=== PATIENT | female | born 1950 | race Caucasian/White ===

== ENCOUNTER → 2021-07-05 10:03 | Outpatient (BNVA) | payer MEDICARE, MEDICAID, SELFPAY | PROVIDERS: Visit Provider Nurse Practitioner Family | DX: G40.909 Epilepsy, unspecified, not intractable, without status epilepticus (principal); G47.62 Sleep related leg cramps; H54.8 Legal blindness, as defined in USA; F84.9 Pervasive developmental disorder, unspecified; R32 Unspecified urinary incontinence | CPT/HCPCS: 99212 ==

== ENCOUNTER → 2022-01-06 09:33 | Outpatient (BNVA) | payer MEDICARE, MEDICAID, SELFPAY | PROVIDERS: Visit Provider Nurse Practitioner Family | DX: R32 Unspecified urinary incontinence (principal); G40.909 Epilepsy, unspecified, not intractable, without status epilepticus; G47.62 Sleep related leg cramps; F84.9 Pervasive developmental disorder, unspecified; H54.8 Legal blindness, as defined in USA | CPT/HCPCS: 99212 ==

== ENCOUNTER → 2022-07-04 10:50 | Outpatient (BNVA) | payer MEDICARE, MEDICAID, SELFPAY | PROVIDERS: Visit Provider Nurse Practitioner Family | DX: G40.909 Epilepsy, unspecified, not intractable, without status epilepticus (principal) | CPT/HCPCS: 99212 ==

== ENCOUNTER 2023-01-05 10:39 | Outpatient (AMB) | payer MEDICARE, MEDICAID, SELFPAY ==
--- NOTE | 2023-01-05 10:48 | MHC.OFFVIS ---
Intake Vital Signs 01/05/23 10:58 Height 5 ft 2 in Weight 149 lb 8 oz BMI 27.3 BP 120/70 Blood Pressure Location Rt brachial Position Sitting Pulse 82 Pulse Source Pulse Oximeter Intake Visit Reasons: 6M f/u - Confirmed Intake Note: Patient presents for 6 months follow up. Patient states no issues or concerns. Allergies No Known Allergies Allergy (Verified 01/05/23 10:58) Medication List - Last Reconciled 01/05/23 by HENRIQUE Harrell albuterol sulfate mg inhalation Q6H PRN albuterol sulfate 90 mcg/actuation (Ventolin HFA) 2 puffs inhalation Q4H PRN alendronate 70 mg PO QWEEK amoxicillin-pot clavulanate 875-125 mg 1 tab PO BID atorvastatin 20 mg PO BEDTIME blood sugar diagnostic (FreeStyle Lite Strips) As directed calcium carbonate-vitamin D3 600 mg-10 mcg (400 unit) (Calcium 600 with Vitamin D3) 1 tab PO BID clotrimazole-betamethasone 1-0.05 % 1 appl topical BID diaper,brief,adult,disposable adult, pull-up large. wear daily, change as needed for incontinence dorzolamide-timolol 22.3-6.8 mg/mL 1 drp ophthalmic (eye) BID fluticasone furoate-vilanterol 100-25 mcg/dose (Breo Ellipta) 1 ea inhalation DAILY glipizide mg PO levetiracetam 500 mg PO BID 90 days losartan 25 mg PO DAILY magnesium oxide 400 mg PO BEDTIME 30 days omeprazole 20 mg PO DAILY pioglitazone 15 mg PO DAILY saxagliptin (Onglyza) 5 mg PO DAILY HPI HPI Comments History of Present Illness Details 72-yr-old female presents for f/u visit, accompanied by caregiver who provides history for pt. Pt denies any significant interval medical changes.? Denies any interval seizures. Compliant w/ Keppra. Patient is eating and drinking well. Patient is sleeping well. Denies bothersome leg cramps. Mood is stable. She continues to have incontinence. Using adult pull-up diapers to manage incontinence. Family assist w/ toileting as pt is legally blind, however pt retains capacity to pull-up and pull-down the pull-ups. PFSH Social History (Reviewed 01/05/23 @ 10:59 by ALONSO Anthony Alcohol intake: never Patient Tobacco Use Status: Never used Tobacco Review of Systems Const All systems reviewed & are unremarkable except as noted in HPI and below Physical Exam Vital Signs: Last Vital Signs Pulse 82 01/05/23 10:58 BP 120/70 01/05/23 10:58 BMI result Body Mass Index 27.3 Const General: cooperative and no acute distress Resp Effort & Inspection: normal respiratory effort and able to speak in complete sentences Neuro Other: Dysconjugate gaze with impaired vision. Patient communicates verbally, with simple sentences, and follows simple direct commands. General: oriented to person Motor exam (neuro): 5/5 motor strength present throughout Psych Appearance: grossly normal Affect: normal affect Attitude: cooperative Assessment & Plan Assessment & Plan (1) Epilepsy: Code(s): G40.909 - Epilepsy, unspecified, not intractable, without status epilepticus (2) Sleep related leg cramps: Code(s): G47.62 - Sleep related leg cramps (3) Pervasive developmental disorder: Code(s): F84.9 - Pervasive developmental disorder, unspecified (4) Urinary incontinence: Code(s): R32 - Unspecified urinary incontinence Plan Continue levetiracetam 500 mg p.o. b.i.d.- for siezure Magnesium Ox 400mg qhs- for leg cramps. Will request recent labs from PCP office. Continue pull-up diapers for urinary incontinence management. f/u in 6 months or sooner prn. Medications: Changed From magnesium oxide may hold for loose stools 400 mg PO BEDTIME 30 days 30 tabs 6RF To magnesium oxide may hold for loose stools 400 mg PO BEDTIME 90 days 90 tabs 1RF Coding Level of Care Code Est Pt Level 4 (03238) Diagnoses Epilepsy G40.909 Sleep related leg cramps G47.62 Pervasive developmental disorder F84.9 Urinary incontinence R32
[2023-01-05 10:58] VITALS: BP 120/70; PULSE 82; BMI 27.3
== END 2023-01-05 11:47 | disposition home or self-care (01) ==
PROVIDERS: Visit Provider Nurse Practitioner Family
DX: G40.909 Epilepsy, unspecified, not intractable, without status epilepticus (principal); G47.62 Sleep related leg cramps; F84.9 Pervasive developmental disorder, unspecified; R32 Unspecified urinary incontinence
CPT/HCPCS: 99214

== ENCOUNTER → 2023-01-05 10:39 | Outpatient (BNVA) | payer OTHER, SELFPAY | PROVIDERS: Visit Provider Nurse Practitioner Family | DX: F84.9 Pervasive developmental disorder, unspecified (principal); R32 Unspecified urinary incontinence; G47.62 Sleep related leg cramps; G40.909 Epilepsy, unspecified, not intractable, without status epilepticus | CPT/HCPCS: 99212 ==

== ENCOUNTER 2023-11-12 11:10 | Outpatient (AMB) | payer MEDICARE, MEDICAID, SELFPAY ==
--- NOTE | 2023-11-12 11:24 | MHC.OFFVIS ---
Vital Signs 11/12/23 11:26 Height 5 ft 2 in Weight 148 lb BMI 27.1 BP 122/74 Blood Pressure Location Rt brachial Position Sitting Pulse 82 Pulse Source Pulse Oximeter Pulse Oximetry (%) 98 Oxygen Delivery Method Room Air Intake Visit Reasons: 6 mnts f/u appt-CONF Intake Note: Patient presents for 6 month follow up. Allergies No Known Allergies Allergy (Verified 11/12/23 11:27) Medication List - Last Reconciled 11/12/23 by HENRIQUE Harrell albuterol sulfate mg inhalation Q6H PRN albuterol sulfate 90 mcg/actuation (Ventolin HFA) 2 puffs inhalation Q4H PRN alendronate 70 mg PO QWEEK amoxicillin-pot clavulanate 875-125 mg 1 tab PO BID atorvastatin 20 mg PO BEDTIME blood sugar diagnostic (FreeStyle Lite Strips) As directed calcium carbonate-vitamin D3 600 mg-10 mcg (400 unit) (Calcium 600 with Vitamin D3) 1 tab PO BID clotrimazole-betamethasone 1-0.05 % 1 appl topical BID diaper,brief,adult,disposable adult, pull-up large. wear daily, change as needed for incontinence dorzolamide-timolol 22.3-6.8 mg/mL 1 drp ophthalmic (eye) BID fluticasone furoate-vilanterol 100-25 mcg/dose (Breo Ellipta) 1 ea inhalation DAILY glipizide mg PO levetiracetam 500 mg PO BID 90 days losartan 25 mg PO DAILY magnesium oxide 400 mg PO BEDTIME 90 days omeprazole 20 mg PO DAILY pioglitazone 15 mg PO DAILY saxagliptin (Onglyza) 5 mg PO DAILY HPI Comments Details: 72-yr-old female presents for f/u visit, accompanied by caregiver who provides history for pt. Pt denies any significant interval medical changes.? Denies any interval seizures. Compliant w/ Keppra. Patient is eating and drinking well. Patient is sleeping well. Denies bothersome leg cramps. Mood is stable. She continues to have incontinence. Using adult pull-up diapers to manage incontinence. Family assist w/ toileting as pt is legally blind, however pt retains capacity to pull-up and pull-down the pull-ups. PFSH Social History (Reviewed 11/12/23 @ 11:27 by PROSPER AnthonyNakia Alcohol intake: never Patient Tobacco Use Status: Never used Tobacco Physical Exam Vital Signs: Last Vital Signs Pulse 82 11/12/23 11:26 BP 122/74 11/12/23 11:26 Pulse Ox 98 11/12/23 11:26 Oxygen Delivery Method Room Air 11/12/23 11:26 BMI result Body Mass Index 27.1 Const General: cooperative and no acute distress Resp Effort & Inspection: normal respiratory effort and able to speak in complete sentences Neuro Other: Oriented to person. Patient communicates verbally, with simple sentences, and follows simple direct commands. Dysconjugate gaze with impaired vision. Pleasant affect Cognition (Neuro): normal cognition Psych Appearance: grossly normal Speech and movement: Normal speech and movement present Affect: normal affect Attitude: cooperative Assessment & Plan Assessment & Plan (1) Epilepsy: Code(s): G40.909 - Epilepsy, unspecified, not intractable, without status epilepticus Category: Medical (2) Sleep related leg cramps: Code(s): G47.62 - Sleep related leg cramps Category: Medical (3) Legally blind: Code(s): H54.8 - Legal blindness, as defined in [place] Category: Medical (4) Pervasive developmental disorder: Code(s): F84.9 - Pervasive developmental disorder, unspecified Category: Medical (5) Urinary incontinence: Comment: mixed, functional. Code(s): R32 - Unspecified urinary incontinence Category: Medical Plan Continue levetiracetam 500 mg p.o. b.i.d.- for siezure Magnesium Ox 400mg qhs- for leg cramps. Will request recent labs from PCP office. Continue scheduled toileting and pull-up diapers for urinary incontinence management. f/u in 12 months or sooner prn. Medications: Refilled diaper,brief,adult,disposable adult, pull-up large. wear daily, change as needed for incontinence 60 ea 11RF F84.9 - Pervasive developmental disorder, unspecified, H54.8 - Legal blindness, as defined in [place], R32 - Unspecified urinary incontinence levetiracetam 500 mg PO BID 90 days 180 tabs 3RF Coding Level of Care Code Est Pt Level 4 (65139) Diagnoses Epilepsy G40.909 Sleep related leg cramps G47.62 Legally blind H54.8 Pervasive developmental disorder F84.9 Urinary incontinence R32
[2023-11-12 11:26] VITALS: BP 122/74; PULSE 82; O2SAT 98; BMI 27.1
== END 2023-11-12 13:08 | disposition home or self-care (01) ==
PROVIDERS: Visit Provider Nurse Practitioner Family
DX: G40.909 Epilepsy, unspecified, not intractable, without status epilepticus (principal); G47.62 Sleep related leg cramps; H54.8 Legal blindness, as defined in USA; F84.9 Pervasive developmental disorder, unspecified; R32 Unspecified urinary incontinence
CPT/HCPCS: 99214

== ENCOUNTER → 2023-11-12 11:10 | Outpatient (BNVA) | payer MEDICARE, MEDICAID, SELFPAY | PROVIDERS: Visit Provider Nurse Practitioner Family | DX: G40.909 Epilepsy, unspecified, not intractable, without status epilepticus (principal); G47.62 Sleep related leg cramps; H54.8 Legal blindness, as defined in USA; F84.9 Pervasive developmental disorder, unspecified; R32 Unspecified urinary incontinence | CPT/HCPCS: 99212 ==

== ENCOUNTER 2024-08-04 09:16 | Outpatient (AMB) | payer OTHER, SELFPAY ==
--- NOTE | 2024-08-04 09:24 | A.OFFVIS_ITS ---
Vital Signs 08/04/24 09:25 Height 5 ft 2 in Weight 157 lb BMI 28.7 BP 130/70 Blood Pressure Location Rt brachial Position Sitting Pulse 73 Pulse Source Pulse Oximeter Pulse Oximetry (%) 96 Oxygen Delivery Method Room Air Intake Visit Reasons: Follow Up Intake Note: Patient presents follow up Epilepsy Accompanied by: [employer] Allergies No Known Allergies Allergy (Verified 08/04/24 09:27) Medication List - Last Reconciled 08/04/24 by HENRIQUE Harrell albuterol sulfate mg inhalation Q6H PRN albuterol sulfate 90 mcg/actuation (Ventolin HFA) 2 puffs inhalation Q4H PRN alendronate 70 mg PO QWEEK amoxicillin-pot clavulanate 875-125 mg 1 tab PO BID atorvastatin 20 mg PO BEDTIME blood sugar diagnostic (FreeStyle Lite Strips) As directed calcium carbonate-vitamin D3 600 mg-10 mcg (400 unit) (Calcium 600 with Vitamin D3) 1 tab PO BID clotrimazole-betamethasone 1-0.05 % 1 appl topical BID diaper,brief,adult,disposable adult, pull-up large. wear daily, change as needed for incontinence dorzolamide-timolol 22.3-6.8 mg/mL 1 drp ophthalmic (eye) BID fluticasone furoate-vilanterol 100-25 mcg/dose (Breo Ellipta) 1 ea inhalation DAILY glipizide mg PO levetiracetam 500 mg PO BID 90 days losartan 25 mg PO DAILY magnesium oxide 400 mg PO BEDTIME 90 days omeprazole 20 mg PO DAILY pioglitazone 15 mg PO DAILY saxagliptin (Onglyza) 5 mg PO DAILY HPI Comments Details: 74-yr-old female presents for f/u visit, accompanied by [employer] and HCP who provides history for pt, Sherri Escobedo. Pt denies any significant interval medical changes.? Pt lives in he rown house, but her [employer] spends most of the time with her as she has visual impairment. Denies any interval seizures. Compliant w/ Keppra. Patient is eating and drinking well. Patient is sleeping well. Occasional leg cramps- has not been taking magnesium. Mood is stable- at times can be sad. Can be sleep during the day. Gait is steady. She continues to have incontinence. Using adult pull-up diapers to manage incontinence. On scheduled toileting plan. manager track assist w/ toileting as pt is legally blind, however pt retains capacity to pull-up and pull-down the pull- ups. [employer] notes taht pt used to receive 12 boxes of wipes per month, and now only receiving 5 boxes per month- so pt is running out. Occasional diarrhea- they think that it may be d/t switching milk from 2% to 1%. May 2024 (from [facility])- CMP/lipid panel- WNL, HgA1C 7.5% H PFSH Social History Alcohol intake: never Patient Tobacco Use Status: Never used Tobacco Physical Exam Vital Signs: Last Vital Signs Pulse 73 08/04/24 09:25 BP 130/70 08/04/24 09:25 Pulse Ox 96 08/04/24 09:25 Oxygen Delivery Method Room Air 08/04/24 09:25 BMI result Body Mass Index 28.7 Const General: cooperative and no acute distress Resp Effort & Inspection: normal respiratory effort and able to speak in complete sentences Neuro Other: Oriented to person. Patient communicates verbally, with simple sentences, and follows simple direct commands. Dysconjugate gaze with impaired vision. Pleasant affect Cognition (Neuro): normal cognition Psych Appearance: grossly normal Speech and movement: Normal speech and movement present Affect: normal affect Attitude: cooperative Assessment & Plan Assessment & Plan (1) Epilepsy: Code(s): G40.909 - Epilepsy, unspecified, not intractable, without status epilepticus Category: Medical (2) Sleep related leg cramps: Code(s): G47.62 - Sleep related leg cramps Category: Medical (3) Legally blind: Code(s): H54.8 - Legal blindness, as defined in [place] Category: Medical (4) Pervasive developmental disorder: Code(s): F84.9 - Pervasive developmental disorder, unspecified Category: Medical (5) Urinary incontinence: Comment: mixed, functional. Code(s): R32 - Unspecified urinary incontinence Category: Medical Plan Continue levetiracetam 500 mg p.o. b.i.d.- for siezure Resume Magnesium Ox 400mg qhs- for leg cramps. Reviewed labs. Continue scheduled toileting and pull-up diapers for urinary incontinence management. Will reach out to [employer] to determine why pt is receiving less wipes per month. f/u in 12 months or sooner prn. Medications: Refilled magnesium oxide may hold for loose stools 400 mg PO BEDTIME 90 days 90 tabs 3RF Coding Level of Care Code Est Pt Level 4 (94869) Diagnoses Epilepsy G40.909 Sleep related leg cramps G47.62 Legally blind H54.8 Pervasive developmental disorder F84.9 Urinary incontinence R32
[2024-08-04 09:25] VITALS: BP 130/70; PULSE 73; O2SAT 96; BMI 28.7
--- OUTSIDE RECORDS SUMMARY | 2024-08-04 10:27 | XMS_ITS | Clinical Summary ---
Author Organization [address] Address [address] [place] [phone] Phone Care Team Providers Care Pipe Fitter Maintenance Name Role Phone Josephine Schmitz MD Primary Care Prov ider Allergies Active Allergy Reactions Criticality Noted Date Comments Codeine Other 04/01/2018 drowsiness Metformin Diarrhea 12/19/2016 Medications Breo Ellipta 100-25 mcg/dose inhaler INHALE 1 PUFF BY MOUTH DAILY. RINSE MOUTH AFTER USE WITH WATER AND SPIT OUT AFTER EACH DOSE TO INFECTION PREVENTION 180 each 1 03/04/20 24 Active acetaminophen (TYLENOL) 500 mg tablet Take 1 tablet (500 mg total) by mouth every 6 (six) hours if needed. 12/20/19 17 Active albuterol 2.5 mg /3 mL (0.083 %) nebulizer solution Inhale 3 mL (2.5 mg total) by mouth every 6 (six) hours if needed for shortness of breath or wheezing. 01/20/20 23 Active Ventolin HFA 90 mcg/actuation inhaler Inhale 2 puffs by mouth every 4 (four) hours if needed for shortness of breath or wheezing. 10/01/19 24 Active aspirin 81 mg EC tablet Take 1 tablet (81 mg total) by mouth 1 (one) time each day. 07/03/19 18 Active atorvastatin (LIPITOR) 20 mg tablet Take 1 tablet (20 mg total) by mouth at bedtime. 01/20/20 23 Active calcium carbonate-javed min D 600 mg-10 mcg (400 unit) per tablet Take 1 tablet by mouth 1 (one) time each day. Active diclofenac (VOLTAREN) 1 % topical gel Apply 4 g topically to R knee two times daily 03/31/20 20 Active dorzolamide-ti moloL (COSOPT) 22.3-6.8 mg/mL ophthalmic solution Administer 1 drop into both eyes 2 (two) times a day. 01/06/20 24 Active fluticasone furoate-vilant Gilberto (BREO ELLIPTA) 100-25 mcg/dose inhaler Inhale 1 puff by mouth 1 (one) time each day. 12/07/19 24 Active levETIRAcetam (KEPPRA) 500 mg tablet Take 1 tablet (500 mg total) by mouth 2 (two) times a day. Active Onglyza 5 mg tablet Take 1 tablet (5 mg total) by mouth 1 (one) time each day. 01/20/20 23 Active lancets (Salix PharmaceuticalsUCH ULTRASOFT 2 LANCET MISC) 1 Dose by Does not apply route daily. 10/28/19 23 Active CALCIUM CARBONATE ORAL CALCIUM CARB-CHOLECALC IFEROL 600-10 MG-MCG TAB TAKE 1 TABLET BY MOUTH DAILY 01/01/20 24 Active lancets (Lancopeuch Delica Plus Lancet) 30 gauge Inject 1 Units into the skin daily. TEST ONCE DAILY DIRECTED 01/07/20 24 Active Lancopeuch Ultra Test test strip USE TO TEST BLOOD GLUCOSE EVERY DAY 12/03/19 24 Active omeprazole (PriLOSEC) [address] capsule TAKE 1 CAPSULE BY MOUTH DAILY 90 capsule 3 03/27/20 24 Active losartan (COZAAR) 25 mg tablet TAKE 1 TABLET BY MOUTH DAILY 90 tablet 3 05/04/19 25 Active pioglitazone (ACTOS) 15 mg tablet TAKE 1 TABLET BY MOUTH DAILY 90 tablet 3 05/04/19 25 Active glipiZIDE (GLUCOTROL) 5 mg tablet Take 1 tablet (5 mg total) by mouth 2 (two) times a day before meals. 180 each 3 05/09/19 25 026 Active triamcinolone (KENALOG) 0.025 % cream Apply thin layer to affected area BID for 2 weeks then stop. Avoid face and groin. 30 g 07/27/19 25 Active clotrimazole-b etamethasone (LOTRISONE) 1-0.05 % cream APPLY EXTERNALLY TO BOTH FEET DAILY 07/16/19 22 04/08/2 025 Discontinued Active Problems Problem Noted Date Diagnosed Date Glaucoma 03/04/2024 Seizures ([facility] V24, [facility] V28) 03/04/2024 Assessment & Plan (05/09/2024 1:05 PM EST): Seizure disorder is well controlled, last episode was many years ago. We will continue Keppra. Patient is encouraged to keep her appointments with neurology. Orders: General supply request Comprehensive metabolic panel; Future Hemoglobin A1c; Future Lipid panel with reflex to direct LDL; Future Microalbumin creatinine urine ratio; Future Elevated LFTs 07/16/2021 Allergic rhinitis due to pollen 07/16/2018 Ground glass opacity present on imaging of lung 07/16/2018 Obesity (BMI 30-39.9) 07/16/2018 Osteopenia 07/24/2017 Hyperlipidemia 12/19/2016 Assessment & Plan (06/21/2024 11:52 AM EST): Given the patients cardiac risk profile, the patient requires an LDL cholesterol of less than 70. I have instructed the patient on the principles of a low cholesterol diet and the importance of regular exercise. Will check a lipid profile and cmp Assessment & Plan (05/09/2024 1:10 PM EST): Given the patients cardiac risk profile, the patient requires an LDL cholesterol of less than 70. I have instructed the patient on the principles of a low cholesterol diet and the importance of regular exercise. Will check a lipid profile and cmp. Orders: Comprehensive metabolic panel; Future Hemoglobin A1c; Future Lipid panel with reflex to direct LDL; Future Microalbumin creatinine urine ratio; Future Gastroesophageal reflux disease 09/16/2016 Allergic rhinitis 08/27/2016 Asthma 08/27/2016 Colon polyp 06/05/2014 Overview (03/04/2024): Mid transv 06/05/14 cscope - small tubular adenoma. Rpt colonoscopy 2019 Diabetes ([facility] V24, [facility] V28) 03/03/2014 Assessment & Plan (06/21/2024 11:52 AM EST): Fair control of diabetes. Last A1C: 7.5. Patient will continue with yearly Podiatric and Ophthomologic evaluations. Will continue Angiotensin Converting Enzyme Inhibitor for renal protection. We will check a hemoglobin A1c before her next visit. Patient will follow up in 4 months Orders: Hemoglobin A1c; Future Assessment & Plan (05/09/2024 1:10 PM EST): Good control of diabetes. Last A1C: 6.8 Patient will continue with yearly Podiatric and Ophthomologic evaluations. Will continue Angiotensin Converting Enzyme Inhibitor for renal protection. We will check a hemoglobin A1c, CMP, microalbuminuria. Patient will follow up in 4 months Orders: Comprehensive metabolic panel; Future Hemoglobin A1c; Future Lipid panel with reflex to direct LDL; Future Microalbumin creatinine urine ratio; Future HTN (hypertension) 06/23/2013 Assessment & Plan (06/21/2024 11:52 AM EST): The patient's antihypertensive regimen is based on their underlying medical issues. At the time of this visit, the blood pressure is well controlled on Losartan. The patient is instructed to follow a low sodium diet and to follow up in 4 months. Assessment & Plan (05/09/2024 1:05 PM EST): The patient's antihypertensive regimen is based on their underlying medical issues. At the time of this visit, the blood pressure is well controlled on Losartan. The patient is instructed to follow a low sodium diet and to follow up in 4 months. Orders: Comprehensive metabolic panel; Future Hemoglobin A1c; Future Lipid panel with reflex to direct LDL; Future Microalbumin creatinine urine ratio; Future Legally blind 06/23/2013 Assessment & Plan (06/21/2024 4:10 PM EST): Patient would benefit of some grab bars at home to help with mobilization. Mental disability 06/23/2013 Encounters Date Type Department Care Team Description 07/26/2024 11:00 AM EDT Office Visit Adult Medicine [address] [phone] Betsy Peñaloza PA Rash of neck (Primary Dx); Type 2 diabetes mellitus without complication, without long-term current use of insulin ([facility] V24, [facility] V28); Primary hypertension 06/21/2024 11:30 AM EST Office Visit Adult [address] [phone] Josephine Espinoza MD Encounter for annual general medical examination with abnormal findings in adult (Primary Dx); Type 2 diabetes mellitus without complication, without long-term current use of insulin ([facility] V24, [facility] V28); Primary hypertension; Legally blind; Mixed hyperlipidemia; Urinary incontinence, unspecified type; Advance care planning 05/09/2024 12:30 PM EST Office Visit Adult [address] [phone] Josephine Espinoza MD Type 2 diabetes mellitus without complication, without long-term current use of insulin ([facility] V24, [facility] V28) (Primary Dx); Primary hypertension; Mixed hyperlipidemia; Seizures ([facility] V24, [facility] V28); Encounter for screening involving social determinants of health (SDoH); Influenza vaccine needed from Last 3 Months Immunizations Name Administration Dates Next Due Influenza Quadravalent, 0.5m l (Fluzone High-dose) 65yo and older 04/02/2023,01/24/2020 Influenza trivalent, 0.5mL ( Fluad) 65yo and older 05/09/2024,01/28/2022,01/24/2020,03/12,12/30/2017 Influenza trivalent, 0.5mL ( Fluzone High-dose) 65yo and older 01/28/2022,03/12/2019,12/30/2017 Influenza trivalent, 0.5mL, preservative free (Fluarix; FluLaval; Fluzone) ages 6mo and older (Afluria) 3 years and older 02/09/2013 Influenza trivalent, with pr eservative (Fluzone; Afluria) 6mo and older 2016,02/09/2015,01/24/2014,02/09 Influenza, Unspecified 04/02/2023,01/18/2021 MMR, measles mumps and rubel la Live (Priorix; M-M-R II) 12mo and older 08/18/2018 Pneumococcal conjugate 13 va lent (Prevnar 13, PCV13) 2mo and older 06/17/2016 Pneumococcal polysaccharide 23 valent (Pneumovax 23) 2yo and older 12/21/2020,01/24/2014 Td Tetanus diptheria (Tdvax) 7yo and older 12/21/2020 Surgical History Surgery Date Site/Laterality Comments SECTION PROCEDURE: HISTORICAL DELIVERY COLONOSCOPY W/ BIOPSIES 06/04/15 PROCEDURE: VT COLONOSCOPY W/BIOPSY SINGLE/MULTIPLE; COMMENT: small mid tv polyp-> tubular adenoma, random R,L bxs- all wnl OTHER SURGICAL HISTORY PROCEDURE: HISTORICAL SUPRACERVICAL HYSTERECTOMY W/O BSO Medical History Medical History Date Comments Diabetes mellitus ([facility] V 24, [facility] V28) DX:Diabetes mellitus ([facility]) HTN (hypertension) 06/23/2013 DX:HTN (hyper tension) Blind 06/23/2013 DX:Blind Mental retardation 06/23/2013 DX:Mental ret ardation Osteoporosis 08/13/2015 DX:Osteoporosis Seizures ([facility] V24, [facility] V28) DX:Seizures ([facility]) Vitamin D deficiency 07/07/2016 DX:Vitamin D deficiency Asthma 08/27/2016 DX:Asthma Allergic rhinitis 08/27/2016 DX:Allergic rh initis Seasonal allergic rhinitis 09/16/2016 DX:Se asonal allergic rhinitis Gastroesophageal reflux disease 09/16/2016 DX:Gastroesophageal reflux disease Hyperlipidemia 12/19/2016 DX:Hyperlipidemi a Osteopenia 07/24/2017 DX:Osteopenia Intellectual disability 06/23/2013 DX:Intel lectual disability Abnormal CT scan, chest DX:Abnor mal CT scan, chest; COMMENT: ? gastric mass(adjacent) Glaucoma suspect DX:Glaucoma elena pect Family History Medical History Relation Name Comments Breast cancer Neg Hx Relation Name Status Comments Brother prostate cancer Father kidney issue/fa ilure Mother stroke Sister liver cancer Social History Tobacco Use Types Packs/Day Years Used Date Smoking Tobacco: Never Smokeless Tobacco: Never Tobacco Cessation:Counseling Given: Not Answered Alcohol Use Standard Drinks/Week Comments No 0 (1 standard drink = 0.6 oz pur e alcohol) Housing Instability Answer Date Recorde d Are you worried that in the next 2 months you may not have stable housing? No 05/09/2024 Food Access & Nutrition Answer Date Rec orded Do you have access to a vari ety of food including fruits and vegetables? Yes 05/09/2024 Access to Healthcare Answer Date Record ed Within the last 3 months, ho w many times did you visit the emergency department for your medical care? 1 05/09/2024 Health Literacy Answer Date Recorded How often do you need to hav e someone help you when you read instructions, pamphlets, or other written material from your doctor or pharmacy? Never 05/09/2024 Caregiver: How often do you need to have someone help you when you read instructions, pamphlets, or other written material from your doctor or pharmacy? Not on file 05/09/2024 Financial Risk Answer Date Recorded How hard is it for you to pa y for the very basics like food, housing, medical care, and air conditioning / heating? Not very hard 05/09/2024 Transportation Answer Date Recorded Has the lack of transportati on kept you from meetings, work, or from getting things needed for daily living? No Has the lack of transportati on kept you from medical appointments or from getting medications? No 05/09/2024 Social Isolation Answer Date Recorded How often do you feel lonely or isolated from th ose around you? Never 05/09/2024 Food Risk Answer Date Recorded Within the past 12 months we worried whether our food would run out before we got money to buy more. Never true 05/09/2024 Within the past 12 months th e food we bought just didn't last and we didn't have money to get more. Never true 05/09/2024 Education Answer Date Recorded Do you think completing more education or training, like finishing a GED, going to college, or learning a trade, would be helpful for you? No 05/09/2024 Employment and Income Answer Date Recor ded During the last four weeks, have you been actively looking for work? No 05/09/2024 Living Situation Answer Date Recorded What is your living situation? 0 05/09/2024 Comments No Sex and Gender Information Value Date Recorded Sex Assigned at Not on file Legal Sex Female 2:54 AM EST Gender Identity Not on file Sexual Orientation Not on file Obstetrics History Last Filed Vital Signs Vital Sign Reading Time Taken Comments Blood Pressure 138/73 07/26/2024 10:49 AM EDT Pulse 72 07/26/2024 10:49 AM EDT Temperature 35.8 ??C (96.5 ??F) 07/26/2024 1 0:49 AM EDT Respiratory Rate 12 07/26/2024 10:4 9 AM EDT Oxygen Saturation - - Inhaled Oxygen Concentration - - Weight 64.3 kg (141 lb 12.8 oz) 025 10:49 AM EDT Height 144.8 cm (4' 9 ) 07/26/2024 10:4 9 AM EDT Body Mass Index 30.69 07/26/2024 10:49 AM EDT Plan of Treatment Upcoming Encounters Date Type Department Care Team (Late st Contact Info) Description 09/30/2024 11:15 AM EDT Appointment Bone Density - [address] [phone] 10/08/2024 1:00 PM EDT Appointment Radiology Department - [address] [phone] 10/17/2024 9:45 AM EDT Office Visit Adult Medicine [address] [phone] Josephine Schmitz MD [address] [place] [phone] 01/17/2025 11:15 AM EDT Office Visit Adult Medicine [address] [phone] Josephine Schmitz MD [address] [place] [phone] Health Maintenance Due Date Last Done Comments Zoster Vaccines (1 of 2) 1999 COVID-19 Vaccine (2023- season) 2023 04/29/2021, 08/07/2020, 07/16/2020 RSV Immunization Adult Patients (1 - 1-dose 75+ series) 02/16/2024 Colorectal Cancer Screening: Colonoscopy 12/11/2024 12/12/2019, 12/12/2019 Diabetes: Blood Sugar Control Test (HGBA1C) 12/11/2024 06/13/2024, 10/01/2023, 10/01/2023 Social Influencers of Health Screening 05/09/2025 05/09/2024 Diabetes: Annual Urine Albumin-Creatinine Ratio (uACR) 06/13/2025 06/13/2024, 07/09/2023, 06/19/2023 Diabetes: Annual GFR (Glomerular Filtration Rate) 06/13/2025 06/13/2024, 06/19/2023 Hypertension/CHF/CAD Annual BMP Blood Test 06/13/2025 06/13/2024, 06/19/2023 Depression Screening 06/21/2025 06/21/2024, 06/16/2023, 06/16/2023 Falls Risk Assessment 06/21/2025 06/21/2024 , 06/16/2023, 06/16/2023 Medicare Annual Wellness Visit 06/21/2025 06/21/2024 Diabetes: Annual Foot Exam 07/26/202507/26, 10/01/2023, 10/01/2023 Osteoporosis Screening (Bone Density Screening) 07/23/2027 07/22/2017 Cholesterol Screening (Lipid Panel) 06/13/2029 06/13/2024, 06/19/2023, 06/19/2023 DTaP,Tdap,and Td Vaccines (2 - Td or Tdap) 12/21/2030 12/21/2020 Hepatitis C Screening Addressed 05/06/2014, 015 Overridden with the intention of not completing the topic MMR Vaccines Aged Out 08/18/2018 No longer eligi ble based on patient's age to complete this topic Pneumococcal Vaccine: 50+ Years Completed 12/21/2020, 06/17/2016, 01/24/2014 Breast Cancer Screening Discontinued 09/26/19, 09/26/2023, 08/27/2022, Additional history exists Influenza Vaccine Completed 05/09/2024, , 04/02/2023, Additional history exists Diabetes: Annual Retina Eye Exam Discontinued HIB Vaccines Aged Out No longer eligi ble based on patient's age to complete this topic HPV Vaccines Aged Out No longer eligi ble based on patient's age to complete this topic Hepatitis A Vaccines Aged Out No long er eligible based on patient's age to complete this topic Hepatitis B Vaccines Aged Out No long er eligible based on patient's age to complete this topic IPV Vaccines Aged Out No longer eligi ble based on patient's age to complete this topic Meningococcal ACWY Vaccine Aged Out N o longer eligible based on patient's age to complete this topic Meningococcal B Vaccine Aged Out No l onger eligible based on patient's age to complete this topic RSV Immunization Patients Under 20 months Aged Out No longer eligible based on patient's age to complete this topic Varicella Vaccines Aged Out No longer eligible based on patient's age to complete this topic Procedures Procedure Name Priority Date/Time Associated Diagnosis Comments COMPREHENSIVE METABOLIC PANEL Routine 06/13/2024 8:57 AM EST Type 2 diabetes mellitus without complication, without long-term current use of insulin ([facility] V24, [facility] V28) Primary hypertension Mixed hyperlipidemia Seizures ([facility] V24, [facility] V28) HEMOGLOBIN A1C Routine 06/13/2024 8:57 AM EST Type 2 diabetes mellitus without complication, without long-term current use of insulin ([facility] V24, [facility] V28) Primary hypertension Mixed hyperlipidemia Seizures ([facility] V24, [facility] V28) LIPID PANEL WITH REFLEX TO DIRECT LDL Routine 06/13/2024 8:57 AM EST Type 2 diabetes mellitus without complication, without long-term current use of insulin ([facility] V24, [facility] V28) Primary hypertension Mixed hyperlipidemia Seizures ([facility] V24, [facility] V28) MICROALBUMIN CREATININE URINE RATIO Routine 06/13/2024 8:57 AM EST Type 2 diabetes mellitus without complication, without long-term current use of insulin ([facility] V24, [facility] V28) Primary hypertension Mixed hyperlipidemia Seizures ([facility] V24, [facility] V28) HM DIABETES FOOT EXAM Routine 10/01/2023 SCREENING MAMMOGRAPHY BI 2-VIEW BREAST INC CAD Routine 09/26/2023 11:48 AM EDT Encounter for screening mammogram for malignant neoplasm of breast DEPRESSION SCREENING Routine 06/16/2023 FALLS RISK ASSESSMENT Routine 06/16/2023 COLONOSCOPY Routine 12/12/2019 DXA BONE DENSITY STUDY 1+ SITS AXIAL SKEL Routine 07/22/2017 1:28 PM EDT Age-related osteoporosis without current pathological fracture HEPATITIS C SCREENING Routine 04/26/2014 from Last 3 Months or Most Recently Relevant to Health Maintenance Results * Lipid panel with reflex to direct LDL (06/13/2024 8:57 AM EST) Cholesterol 129 0 - 200 mg/dL LAB CHEMISTRY METHOD 06/13/2024 1:37 PM [facility] Triglycerides 127 0 - 150 mg/dL LAB CHEMISTRY METHOD 06/13/2024 1:37 PM [facility] HDL 44 >=40 mg/dL LAB CHEMISTRY METHOD 06/13/2024 1:37 PM [facility] LDL Calculated 60 0 - 100 mg/dL LAB CHEMISTRY METHOD 06/13/2024 1:37 PM [facility] VLDL Cholesterol Mahendra 25.4 mg/dL LAB CHEMISTRY METHOD 06/13/2024 1:37 PM [facility] Non HDL Chol. (LDL+VLDL) 85 <145 mg/dL LAB CHEMISTRY METHOD 06/13/2024 1:37 PM [facility] Chol/HDL Ratio 2.9 0.0 - 4.4 LAB CHEMISTRY METHOD 06/13/2024 1:37 PM [facility] Blood Venous blood specimen / Unknown Venipuncture / Unknown 06/13/2024 8:57 AM EST 06/13/2024 8:58 AM EST Josephine Schmitz MD LAB BLOOD ORDERABL ES Final Result [facility] [address] [place] [address], [place] [phone] * Microalbumin creatinine urine ratio (06/13/2024 8:57 AM EST) Creatinine, Urine 299.0 mg/dL LAB CHEMISTRY METHOD 06/13/2024 10:42 AM EST [facility] Microalb, Ur 24.0 0.0 - 29.0 mg/L LAB CHEMISTRY METHOD 06/13/2024 10:42 AM EST [facility] Microalb/Creat Ratio 8 <30 mg/g creat LAB CHEMISTRY METHOD 06/13/2024 10:42 AM EST [facility] Urine Urine specimen obtained by clean catch procedure / Unknown Non-blood Collection / Unknown 06/13/2024 8:57 AM EST 06/13/2024 8:58 AM EST Josephine Schmitz MD LAB URINE ORDERABL ES Final Result Performing Organization Address [facility]/ZIP Co de Phone Number [facility] [address] [place] [address], [place] [phone] * (ABNORMAL) Hemoglobin A1c (06/13/2024 8:57 AM EST) Hemoglobin A1C 7.5(H) <6.5 % LAB CHEMISTRY METHOD 06/13/2024 1:53 PM EST [facility] Mean Bld Glu Estim. 169 mg/dL LAB CHEMISTRY METHOD 06/13/2024 1:53 PM EST [facility] Blood Venous blood specimen / Unknown Venipuncture / Unknown 06/13/2024 8:57 AM EST 06/13/2024 8:58 AM EST us Josephine Schmitz MD LAB BLOOD ORDERABL ES Final Result [facility] [address] [place] [address], * Comprehensive metabolic panel (06/13/2024 8:57 AM EST) Sodium 142 133 - 145 mmol/L LAB CHEMISTRY METHOD 06/13/2024 1:37 PM [facility] Potassium 3.9 3.5 - 5.5 mmol/L LAB CHEMISTRY METHOD 06/13/2024 1:37 PM [facility] Chloride 107 96 - 110 mmol/L LAB CHEMISTRY METHOD 06/13/2024 1:37 PM [facility] CO2 27 21 - 32 mmol/L LAB CHEMISTRY METHOD 06/13/2024 1:37 PM [facility] Anion Gap 8 3 - 11 LAB CHEMISTRY METHOD 06/13/2024 1:37 PM [facility] Glucose 100 70 - 100 mg/dL LAB CHEMISTRY METHOD 06/13/2024 1:37 PM [facility] BUN 16 5 - 25 mg/dL LAB CHEMISTRY METHOD 06/13/2024 1:37 PM [facility] Creatinine 0.85 0.50 - 1.10 mg/dL LAB CHEMISTRY METHOD 06/13/2024 1:37 PM [facility] eGFR 72 >=60 mL/min/1. 73m2 LAB CHEMISTRY METHOD 06/13/2024 1:37 PM [facility] Comment:Calculation based on the??Chronic Kidney Disease Epidemiology Collaboration (CKD-EPI) equation refit??without adjustment for race. BUN/Creatinine Ratio 18.8 LAB CHEMISTRY METHOD 06/13/2024 1:37 PM [facility] Calcium 8.7 8.5 - 10.5 mg/dL LAB CHEMISTRY METHOD 06/13/2024 1:37 PM EST [facility] AST (SGOT) 42 10 - 42 unit/L LAB CHEMISTRY METHOD 06/13/2024 1:37 PM [facility] ALT (SGPT) 38 10 - 60 unit/L LAB CHEMISTRY METHOD 06/13/2024 1:37 PM [facility] Alkaline Phosphatase 101 42 - 121 unit/L LAB CHEMISTRY METHOD 06/13/2024 1:37 PM [facility] Total Protein 7.2 6.0 - 8.0 g/dL LAB CHEMISTRY METHOD 06/13/2024 1:37 PM [facility] Albumin 3.3 3.2 - 5.0 g/dL LAB CHEMISTRY METHOD 06/13/2024 1:37 PM [facility] Total Bilirubin 0.7 0.0 - 1.4 mg/dL LAB CHEMISTRY METHOD 06/13/2024 1:37 PM [facility] Blood Venous blood specimen / Unknown Venipuncture / Unknown 06/13/2024 8:57 AM EST 06/13/2024 8:58 AM EST Josephine Schmitz MD LAB BLOOD ORDERABL ES Final Result [facility] [facility] [address] [place] [address], * Diabetes Foot Exam (10/01/2023) Diabetes: Annual Foot Exam Abstracted Historical Provider HEALTH MAINTENANCE Final Result * SCREENING MAMMOGRAPHY BI 2-VIEW BREAST INC CAD (09/26/2023 11:48 AM EDT) Anatomical Region Laterality Modality Radiographic Nataly ging 08/27/2022 1:57 PM EDT Narrative 09/28/2023 5:20 PM EDT This is a summary report. The complete report is available in the patient's medical record. If you cannot access the medical record, please contact the sending organization for a detailed fax or copy. Exam: Screening mammogram Findings: Digital bilateral full-field screening mammography is performed with tomosynthesis and interpreted with the aid of computer-aided detection. ??Comparison is made with 08/27/2022 and 07/07/2018. ?? Breast parenchyma is heterogeneously dense, which may obscure small masses. ??No new suspicious mass, architectural distortion, or suspicious calcifications. Impression: No mammographic evidence of malignancy. BI-RADS 1 - negative Procedure Note Deyanira Vinson MD - 02/03/2024 This is a summary report. The complete report is available in thepatient's medical record. If you cannot access the medical record, pleasecontact the sending organization for a detailed fax or copy. Exam: Screening mammogram Findings: Digital bilateral full-field screening mammography is performedwith tomosynthesis and interpreted with the aid of computer-aideddetection. Comparison is made with 08/27/2022 and 07/07/2018. Breast parenchyma is heterogeneously dense, which may obscure smallmasses. No new suspicious mass, architectural distortion, or suspiciouscalcifications. Impression: No mammographic evidence of malignancy. BI-RADS 1 - negative Betsy BAIN IMG XR PROCEDURES Final Result * Falls Risk Assessment (06/16/2023) Pathologist [facility] [place] Risk Assessment Abstracted Result [facility] Provider HEALTH MAINTENANCE Final Result * Depression Screening (06/16/2023) Depression Screening Abstracted Result [facility] Provider HEALTH MAINTENANCE Final Result * Colonoscopy (12/12/2019) Pathologist [facility] Colonoscopy No Interpretation , Abstracted Anatomical Region Laterality Modality Other [facility] Provider HEALTH MAINTENANCE Final Result * DXA BONE DENSITY STUDY 1+ SITS AXIAL SKEL (07/22/2017 1:28 PM EDT) Anatomical Region Laterality Modality Bone Densitometr y 07/02/2017 9:39 AM EDT Narrative 07/22/2017 4:15 PM EDT DEXA SCAN: Lumbar Spine T-score is +1.4. ?? (SD relative to 20-29 y/o adult) Z-score is +3.4. ??(SD relative to age matched peers) This is considered normal bone density by WHO criteria. Left Femoral Neck T-score is -2.0. Z-score is -0.4. This is considered osteopenia by WHO criteria. Comparison exam(s): Compared to 11/23/2014, there is a statistically significant, 7.4% increase in bone density measured throughout the lumbar spine. A 3.2% increase in bone density is measured at the left hip compared to 11/23/2014. IMPRESSION: Osteopenia by WHO criteria. The World Health Organization Fracture Risk Assessment is not calculated due to current treatment for osteoporosis. The [facility] Department of Internal Medicine recommends using National Osteoporosis Foundation (NOF) guidelines in treatment decisions related to osteoporosis. NOF guidelines suggest considering treatment for postmenopausal women and men aged 50 or older presenting with the following: History of hip or vertebral fracture. T-score = -2.5 (DXA) at the femoral neck, total hip, or spine, after appropriate evaluation to exclude secondary causes. Low bone mass (T-score between -1.0 and -2.5 at the femoral neck or spine) AND a 10-year probability of a hip fracture = 3% OR a 10-year probability of a major osteoporosis-related fracture = 20% based on the [place]-adapted WHO algorithm Please note that all treatment decisions require clinical judgment and consideration of individual patient factors, including patient preferences, co-morbidities, previous drug use, risk factors not captured in the FRAX model (e.g., frailty, falls, vitamin D deficiency, increased bone turnover, interval significant decline in bone density) and possible under- or over-estimation of fracture risk by FRAX. Optional alternative screening schedule based on mahogany Steele., BANNER May 08, 2011 for patients with osteopenia (based on hip BMD T-score) is as follows: * ??advanced osteopenia (T scores -2.00 to -2.49), BMD testing every year * ??moderate osteopenia (T scores -1.50 to -1.99), BMD testing every 5 years mild osteopenia or normal BMD (T scores -1.50 and higher), BMD testing every 15 years Procedure Note Kaitlynn Heaven León DO - 04/08/2022 DEXA SCAN: Lumbar Spine T-score is +1.4. (SD relative to 20-29 y/o adult) Z-score is +3.4. (SD relative to age matched peers) This is considered normal bone density by WHO criteria. Left Femoral Neck T-score is -2.0. Z-score is -0.4. This is considered osteopenia by WHO criteria. Comparison exam(s): Compared to 11/23/2014, there is a statisticallysignificant, 7.4% increase in bone density measured throughout the lumbar spine. A 3.2% increase inbone density is measured at the left hip compared to 11/23/2014. IMPRESSION: Osteopenia by WHO criteria. The World Health Organization Fracture RiskAssessment is not calculated due to current treatment for osteoporosis. The [facility] Department of Internal Medicine recommendsusing National Osteoporosis Foundation (NOF) guidelines in treatment decisions related toosteoporosis. NOF guidelines suggest considering treatment for postmenopausal women and menaged 50 or older presenting with the following: History of hip or vertebral fracture. T-score = -2.5 (DXA) at the femoral neck, total hip, or spine, afterappropriate evaluation to exclude secondary causes. Low bone mass (T-score between -1.0 and -2.5 at the femoral neck or spine)AND a 10-year probability of a hip fracture = 3% OR a 10-year probability of a majorosteoporosis-related fracture = 20% based on the [place]-adapted WHO algorithm Please note that all treatment decisions require clinical judgment andconsideration of individual patient factors, including patient preferences, co- morbidities,previous drug use, risk factors not captured in the FRAX model (e.g., frailty, falls, vitaminD deficiency, increased bone turnover, interval significant decline in bone density) andpossible under- or over-estimation of fracture risk by FRAX. Optional alternative screening schedule based on mahogany Steele., BANNERJanuary 2011 for patients with osteopenia (based on hip BMD T-score) is as follows: * advanced osteopenia (T scores -2.00 to -2.49), BMD testing every year * moderate osteopenia (T scores -1.50 to -1.99), BMD testing every 5years mild osteopenia or normal BMD (T scores -1.50 and higher), BMD testingevery 15 years Roberto Irving MD IMG DXA PROCEDURES Kristyn l Result * Hepatitis C Screening (04/26/2014) Hepatitis C Screening Abstracted us Historical Provider HEALTH MAINTENANCE Final Result from Last 3 Months or Most Recently Relevant to Health Maintenance Insurance [facility] MEDICAID [place] ROBISON [id number] Advance Directives Documents on File Type Date Recorded Patient Physician Practice Manager Expl anation Advance Directives and Living Will 07/29/2024 4:53 PM HEALTH CARE PROXY Care Teams Pipe Fitter Maintenance Relationship Specialty Start Date End Date Josephine Schmitz MD [address] [place] [id number] PCP - General Internal Medicine 05/09/24
== END 2024-08-04 10:09 | disposition home or self-care (01) ==
LOC: HO.HSMS 09:17
PROVIDERS: PCP Internal Medicine; Visit Provider Nurse Practitioner Family
DX: G40.909 Epilepsy, unspecified, not intractable, without status epilepticus (principal); G47.62 Sleep related leg cramps; H54.8 Legal blindness, as defined in USA; F84.9 Pervasive developmental disorder, unspecified; R32 Unspecified urinary incontinence
CPT/HCPCS: 99214

== ENCOUNTER → 2024-08-04 09:16 | Outpatient (BNVA) | payer OTHER, SELFPAY | PROVIDERS: PCP Internal Medicine; Visit Provider Nurse Practitioner Family | DX: G40.909 Epilepsy, unspecified, not intractable, without status epilepticus (principal); G47.62 Sleep related leg cramps; H54.8 Legal blindness, as defined in USA; F84.9 Pervasive developmental disorder, unspecified; R32 Unspecified urinary incontinence | CPT/HCPCS: 99212 ==